=== PATIENT | male | born 1945 | race Caucasian/White ===

== ENCOUNTER 2017-06-08 18:19 | Inpatient (IN) | payer MEDICARE ==
[~2017-06-08] VITALS: Ht 180.3 cm; Wt 84.4 kg
[2017-06-08 19:08] LABS: BASOPHILS # (AUTO) 0.1 (0.0-0.1); BASOPHILS % 0.6 % (0.0-1.0); EOSINOPHILS # (AUTO) 0.1 (0.0-0.4); EOSINOPHILS % 1.7 % (0.0-6.0); HEMATOCRIT 41.4 % (38.2-49.6); HEMOGLOBIN 13.8 g/dL (14.0-18.0); LYMPHOCYTES # (AUTO) 2.1 (1.0-3.2); LYMPHOCYTES % 26.2 % (18.0-39.1); MEAN CORPUSCULAR HEMOGLOBIN 30.8 pg (28-32); MEAN CORPUSCULAR HGB CONC 33.3 g/dL (31-35); MEAN CORPUSCULAR VOLUME 92.4 fL (81-99); MONOCYTES # (AUTO) 0.4 (0.2-0.8); MONOCYTES % 5.2 % (4.4-11.3); NEUTROPHILS # (AUTO) 5.3 (2.1-6.9); NEUTROPHILS % 66.1 % (38.7-80.0); PLATELET COUNT 149 x10e3/uL (140-360); RED BLOOD COUNT 4.48 x10e6/uL (4.3-5.7); RED CELL DISTRIBUTION WIDTH 12.8 % (11.7-14.4)
--- NOTE | 2017-06-08 19:17 | Diagnostic Imaging Report ---
EXAMINATION: CHEST 2 VIEWS INDICATION: Possible heart attack \S\CP/COUGH COMPARISON: None FINDINGS: PA and lateral views TUBES and LINES: None. LUNGS: Lungs are well inflated. Lungs are clear. There is no evidence of pneumonia or pulmonary edema. PLEURA: No pleural effusion or pneumothorax. HEART AND MEDIASTINUM: The cardiomediastinal silhouette is unremarkable. There are atherosclerotic calcifications within the aorta. BONES AND SOFT TISSUES: No acute osseous lesion. Soft tissues are unremarkable. UPPER ABDOMEN: No free air under the diaphragm. IMPRESSION: No acute thoracic abnormality. Signed by: Dr. Avtar Haider M.D. on 06/08/2017 7:13 PM
[2017-06-08 19:18] LABS: INR 1.01; PROTHROMBIN TIME 12.5 seconds (11.9-14.5)
[2017-06-08 19:19] LABS: PARTIAL THROMBOPLASTIN TIME 27.6 seconds (23.8-35.5)
[2017-06-08 19:26] LABS: ALBUMIN 3.5 g/dL (3.5-5.0); ANION GAP 14.4 mmol/L (8-16); CALCIUM 8.5 mg/dL (8.4-10.2); CREATININE, SERUM 1.39 mg/dL (0.72-1.25); POTASSIUM 3.4 mmol/L (3.5-5.1)
[2017-06-08 19:35] LABS: CREATINE KINASE MB 1.6 ng/mL (0-5.0)
--- NOTE | 2017-06-08 20:07 | Diagnostic Imaging Report ---
Exam: Head CT without contrast History: Fainting, Comparison studies: None Technique: Axial images were obtained from the skull base to the vertex. Coronal and sagittal images reconstructed from the axial data. Intravenous contrast: None Findings: Scalp: No abnormalities. Bones: No fractures, blastic or lytic lesions. Brain sulci: Mildly prominent. Ventricles: Mild compensatory dilatation. No hydrocephalus. Extra-axial spaces: No masses, no fluid collection. Parenchyma: No mass, acute hemorrhage or acute cortical vascular insults. A few scattered and mildly confluent hypodensities in the supratentorial white matter are nonspecific but most compatible with chronic small vessel ischemic changes. Small chronic lacunar infarcts in the head of the left caudate nucleus, right frontal gonzales radiata, right superior putamen and in the right thalamus. Sellar/suprasellar region: No abnormalities. Craniocervical junction: Patent foramen magnum. No Chiari one malformation. Incidental findings: Atherosclerotic calcifications in the carotid siphons. IMPRESSION: No acute intracranial abnormalities. Specifically, no mass, acute hemorrhage or acute cortical vascular insults. Chronic findings: 1. Mild generalized volume loss. 2. Moderate chronic microvascular ischemic changes with small chronic lacunar infarcts as described. Signed by: Dr. Theo Lira M.D. on 06/08/2017 8:04 PM
[2017-06-08] MEDS ORDERED: MORPHINE SULFATE 2 MG/ML SYR IV STA (23:59)
[2017-06-08] MEDS ORDERED: ONDANSETRON HCL INJ 2 MG/ML VIAL IV STA (23:59)
[2017-06-09] VITALS (8 sets, daily range): BP systolic 140–165; BP diastolic 70–84
[2017-06-09] MEDS ORDERED: ASPIRIN 81 MG CHEW TAB PO ONE
[2017-06-09] MEDS ORDERED: JANUMET 50-5001 EACH PO (00:21)
[2017-06-09] MEDS ORDERED: CRESTOR10 MG PO (00:21)
[2017-06-09] MEDS ORDERED: BENICAR40 MG PO (00:21)
[2017-06-09] MEDS ORDERED: ASPIR 8181 MG PO (00:21)
[2017-06-09] MEDS ORDERED: AMLODIPINE BESYL5 MG PO (00:21)
[2017-06-09] MEDS ORDERED: LASIX20 MG PO (00:21)
[2017-06-09] MEDS ORDERED: GLIMEPIRIDE2 MG PO (00:21)
[2017-06-09] MEDS ORDERED: MORPHINE SULFATE 2 MG/ML SYR IV PRN (00:45)
[2017-06-09] MEDS ORDERED: ONDANSETRON HCL INJ 2 MG/ML VIAL IV PRN (00:45)
[2017-06-09] MEDS ORDERED: NITROGLYCERIN 0.4 MG SUBL SL PRN (00:45)
[2017-06-09] MEDS ORDERED: FAMOTIDINE 20 MG/2 ML VIAL IV SCH (00:45)
[2017-06-09] MEDS ORDERED: POTASSIUM CHLORIDE 20 MEQ TAB CR PO STA (00:47)
[2017-06-09] MEDS ORDERED: FAMOTIDINE 20 MG/2 ML VIAL IV ONE (00:59)
[2017-06-09] MEDS ORDERED: DEXTROSE 50% SYRINGE 50 ML IV PRN (01:00)
--- OUTSIDE RECORDS SUMMARY | 2017-06-09 01:54 | XMS REPORT ---
Author Author [facility] Address Unknown Phone Unavailable Care Team Providers Care Iridologist Name Role Phone MOIRA EVANGELISTA Unavailable Unavailable Problems This patient has no known problems. Allergies, Adverse Reactions, Alerts This patient has no known allergies or adverse reactions. Medications This patient has no known medications. Results Test Description Test Time Test Comments Text Results Atomic Results Result Comments CT BRAIN WO [place] [address] Patient Name: LORRAINE ALDRIDGE MR #: [id number] : 1945 Age/Sex: 71/M Req #: [id number] Adm Physician: Ordered by: MOIRA EVANGELISTA MD Report #: [id number] Location: ER Room/Bed: Procedure: [id number] 0028 CT/CT BRAIN WO Exam Date: 06/08/17 Exam Time: 1919 REPORT STATUS: Signed Exam: Head CT without contrast History: Fainting, Comparison studies: None Technique: Axial images were obtained from the skull base to the vertex. Coronal and sagittal images reconstructed from the axial data. Intravenous contrast: None Findings: Scalp: No abnormalities. Bones: No fractures, blastic or lytic lesions. Brain sulci: Mildly prominent. Ventricles: Mild compensatory dilatation. No hydrocephalus. Extra-axial spaces: No masses, no fluid collection. Parenchyma: No mass, acute hemorrhage or acute cortical vascular insults. A few scattered and mildly confluent hypodensities in the supratentorial white matter are nonspecific but most compatible with chronic small vessel ischemic changes. Small chronic lacunar infarcts in the head of the left caudate nucleus, right frontal gonzales radiata, right superior putamen and in the right thalamus. Sellar/suprasellar region: No abnormalities. Craniocervical junction: Patent foramen magnum. No Chiari one malformation. Incidental findings: Atherosclerotic calcifications in the carotid siphons. IMPRESSION: No acute intracranial abnormalities. Specifically, no mass, acute hemorrhage or acute cortical vascular insults. Chronic findings: 1. Mild generalized volume loss. 2. Moderate chronic microvascular ischemic changes with small chronic lacunar infarcts as described. Signed by: Dr. Fam Lira M.D. on 06/08/2017 8:04 PM Dictated By: FAM LIRA MD 03 Transcribed By: LUIZA on 06/08/172003 COPY TO: MOIRA EVANGELISTA MD CHEST 2 VIEWS [place] [address] Patient Name: LORRAINE ALDRIDGE MR #: [id number] : 1945 Age/Sex: 71/M Req #: [id number] Adm Physician: Ordered by: MOIRA EVANGELISTA MD Report #: [id number] Location: ER Room/Bed: Procedure: [id number] 0072 DX/CHEST 2 VIEWS Exam Date: 06/08/17 Exam Time : 1843 REPORT STATUS: Signed EXAMINATION: CHEST 2 VIEWS INDICATION: Possible heart attack S CP/COUGH COMPARISON: None FINDINGS: PA and lateral views TUBES and LINES: None. LUNGS: Lungs are well inflated. Lungs are clear. There is no evidence of pneumonia or pulmonary edema. PLEURA: No pleural effusion or pneumothorax. HEART AND MEDIASTINUM: The cardiomediastinal silhouette is unremarkable. There are atherosclerotic calcifications within the aorta. BONES AND SOFT TISSUES: No acute osseous lesion. Soft tissues are unremarkable. UPPER ABDOMEN: No free air under the diaphragm. IMPRESSION: No acute thoracic abnormality. Signed by: Dr. Diane Hoang M.D. on 06/08/2017 7:13 PM Dictated By: DIANE HOANG MD 12 Transcribed By: LUIZA on 06/08/171912 COPY TO: MOIRA EVANGELISTA MD
[2017-06-09 02:30] LABS: BASOPHILS % 0.5 % (0.0-1.0); EOSINOPHILS # (AUTO) 0.1 (0.0-0.4); EOSINOPHILS % 1.8 % (0.0-6.0); HEMATOCRIT 36.3 % (38.2-49.6); HEMOGLOBIN 12.2 g/dL (14.0-18.0); LYMPHOCYTES # (AUTO) 2.1 (1.0-3.2); LYMPHOCYTES % 25.9 % (18.0-39.1); MEAN CORPUSCULAR HGB CONC 33.6 g/dL (31-35); MEAN CORPUSCULAR VOLUME 92.1 fL (81-99); MONOCYTES # (AUTO) 0.6 (0.2-0.8); NEUTROPHILS # (AUTO) 5.1 (2.1-6.9); NEUTROPHILS % 64.4 % (38.7-80.0); PLATELET COUNT 130 x10e3/uL (140-360); RED BLOOD COUNT 3.94 x10e6/uL (4.3-5.7); RED CELL DISTRIBUTION WIDTH 12.7 % (11.7-14.4)
[2017-06-09 02:41] LABS: ANION GAP 12.2 mmol/L (8-16); BLOOD UREA NITROGEN 16 mg/dL (7-26); BUN/CREATININE RATIO 14 (6-25); CALCIUM 8.3 mg/dL (8.4-10.2); CARBON DIOXIDE 24 mmol/L (22-29); CHLORIDE 109 mmol/L (98-107); CREATINE KINASE 78 IU/L (30-200); CREATININE, SERUM 1.17 mg/dL (0.72-1.25); EST GLOMERULAR FILTRATION RATE > 60 ML/MIN (60-); GLUCOSE 96 mg/dL (74-118); POTASSIUM 4.2 mmol/L (3.5-5.1); SODIUM 141 mmol/L (136-145)
[2017-06-09] MEDS ORDERED: CLOPIDOGREL BISULFATE 75 MG TAB PO ONE (03:00)
[2017-06-09] MEDS: ENOXAPARIN INJ 80 MG/0.8 ML SYR SC SCH ×2 (03:10→18:12)
[2017-06-09] MEDS: INSULIN REGULAR, HUMAN 100 UNIT/1 ML 3ML VIAL SQ SCH ×4 (07:30→21:00)
[2017-06-09] MEDS: ASPIRIN 325 MG TAB EC PO SCH (09:00)
[2017-06-09] MEDS: CLOPIDOGREL BISULFATE 75 MG TAB PO SCH (09:00)
[2017-06-09] MEDS: FUROSEMIDE 20 MG TAB PO SCH (09:28)
[2017-06-09] MEDS: FAMOTIDINE 20 MG/2 ML VIAL IV SCH ×2 (09:30→20:55)
[2017-06-09 09:43] LABS: CREATINE KINASE MB 8.1 ng/mL (0-5.0)
--- NOTE | 2017-06-09 09:49 | History and Physical ---
This is a 71-year-old white man who presents to [facility] emergency room with a 1-day history of retrosternal chest tightness radiating to his left shoulder and left arm. Patient also complained of nausea. Denied any diaphoresis. Patient also complained of shortness of breath with this chest discomfort. Patient has a known history of coronary artery disease. In fact, he has undergone coronary stent placement 3 times previously. The last time being at age 52. In the emergency room, the patient's initial troponin I was 0.146, but it has increased to 0.718 at 2 o'clock this morning. Patient is currently chest pain free though. On admission, the patient's BUN and creatinine was 14 and 1.39 respectively. After gentle hydration, this morning it is 16 and 1.17 respectively. Patient's complete blood count is within normal limits. Chest film of the abdomen was unremarkable. EKG done in the emergency room did not reveal any S/T elevation or depression. Patient was admitted for further evaluation and treatment. REVIEW OF SYSTEMS GENERAL: No weight change. No fever or chills. HEENT: Patient does complain of a slight headache, but he states it is due to the fact that needs to smoke a cigarette and drink a caffeinated soda. Denies any visual changes. CARDIOVASCULAR/RESPIRATORY: Chest pain as per HPI. Does complain of slight shortness of breath and chest pain. He has had a hacking cough for the last 3-4 weeks, and was actually diagnosed with influenza A respiratory infection in April 2017. GI: Complained of nausea with the chest pain. No vomiting. No diarrhea. : No BPH or UTI symptoms. NEUROMUSCULAR: Complained of pain in his left shoulder and left arm associated with the chest pain. ALLERGIES: DILTIAZEM. PAST SURGICAL HISTORY 1. Coronary stents placed on 3 separate occasions (age 42, age 48, and age 52). 2. Lumbar spine surgery. 3. Left knee meniscal repair. 4. Right lower extremity angioplasty with stent placement. 5. Bilateral lens placement. FAMILY HISTORY: Multiple family members with coronary artery disease. However, his father who is 97 years old is still alive. SOCIAL HISTORY: This man is and lives with his . He is retired. He is a heavy tobacco smoker of approximately 50-pack year smoker. No alcohol use. Patient is a [place] [employer] . PAST MEDICAL HISTORY 1. Stage 3 chronic kidney disease. 2. Ischemic heart disease (history of myocardial infarction 3 times). 3. Coronary artery disease (history of coronary stent placement on 3 separate occasions). 4. Hyperlipidemia. 5. Hypertensive heart disease. 6. Chronic systolic congestive heart failure. 7. Tobacco abuse. 8. Peripheral arterial disease. 9. Chronic bronchitis. 10. Allergic rhinitis. 11. Type 2 diabetes mellitus. 12. GERD. HOME MEDICATIONS 1. Janumet 50 per 500 mg 1 b.i.d. 2. Glimepiride 4 mg b.i.d. 3. Prevacid 15 mg daily. 4. Aspirin 81 mg a day. 5. Clopidogrel 75 mg a day. 6. Benicar 20 mg a day. 7. Rosuvastatin 20 mg at bedtime. 8. Furosemide 20 mg daily. PHYSICAL EXAMINATION GENERAL: He is alert, awake, and very pleasant and cooperative with exam. VITALS: Height is 5 feet 11 inches, weight 186 pounds. Calculated body mass index 26. Blood pressure is 143/70, pulse 62, respiratory rate 18, oxygen saturation is 96%, temperature 97. INTEGUMENT: Skin is warm and dry. No pallor of conjunctivae. HEENT: Anicteric sclerae. Moist mucous membranes. NECK: Supple. No evidence of jugular venous distention. CARDIOVASCULAR: Distant heart sounds. Regular rate and rhythm. LUNGS: Patient has expiratory wheezing bilaterally with prolonged expiratory phase. No rales or rhonchi appreciated. ABDOMEN: Benign. Normal bowel sounds. Nontender. EXTREMITIES: No edema or deformity. NEUROLOGIC: No gross focal deficits appreciated. DIAGNOSES 1. Unstable angina. 2. Non-Q-wave myocardial infarction. 3. Coronary artery disease (history of coronary stent placement on 3 separate occasions). 4. Chronic obstructive pulmonary disease. 5. Tobacco abuse. 6. Chronic systolic congestive heart failure. 7. Hypertensive heart disease. 8. Stage 3 chronic kidney disease. PLAN 1. Follow renal function. 2. Follow serum troponin I levels. 3. Consult cardiology. 4. Order 2-D echocardiogram. 5. Proceed with beta blockers. 6. Agree with aspirin and Plavix. 7. Agree with 1 dose of enoxaparin that was given early this morning in the emergency room. 8. Highly recommend tobacco cessation. 9. Will order nicotine patch. I informed the patient that he most likely will undergo a left heart catheterization today. I spent 1 hour in the care of the patient. Job#: [id number] JACKSON JUAN
[2017-06-09] MEDS: NICOTINE 7 MG PATCH TOP SCH (10:10)
[2017-06-09] MEDS: AMLODIPINE BESYLATE 5 MG TAB PO SCH (10:10)
[2017-06-09] MEDS ORDERED: MIDAZOLAM HCL 2 MG/2 ML VIAL PRN (13:14)
[2017-06-09] MEDS ORDERED: LIDOCAINE HCL 2% LOCAL 20 ML VIAL PRN (13:14)
[2017-06-09] MEDS ORDERED: FENTANYL CITRATE/PF 100MCG/2 ML INJ PRN (13:14)
[2017-06-09] MEDS ORDERED: FENTANYL CITRATE/PF 100MCG/2 ML INJ IV PRN (13:15)
[2017-06-09] MEDS ORDERED: IOPAMIDOL 300MG/ML 100 ML INFUS..BTL IV PRN (13:15)
[2017-06-09] MEDS ORDERED: SODIUM CHLORIDE 0.9% 1000ML 1,000 ML PRN (13:15)
[2017-06-09] MEDS ORDERED: HEPARIN SOD/SOD CHLORIDE 2,000 ML PRN (13:15)
[2017-06-09] MEDS ORDERED: MIDAZOLAM HCL 2 MG/2 ML VIAL IV PRN (13:15)
[2017-06-09] MEDS ORDERED: GUAIFENESIN/CODEINE 10 ML CUP PO PRN (13:45)
[2017-06-09] MEDS ORDERED: ALBUTEROL SULF 0.083% NEB SOLN 3 ML NEB NEB PRN (13:45)
[2017-06-09] MEDS ORDERED: METHYLPREDNISOLONE SOD SUCC 125 MG/2ML VIAL IV ONE (14:15)
[2017-06-09] MEDS: GLIMEPIRIDE 2 MG TAB PO SCH (14:36)
[2017-06-09] MEDS: GUAIFENESIN/CODEINE 10 ML CUP PO SCH ×2 (14:37→21:01)
[2017-06-09] MEDS: BENZONATATE 100 MG CAP PO SCH ×2 (14:37→21:01)
--- NOTE | 2017-06-09 18:40 | Consultation ---
DATE OF CONSULTATION: June 09, 2017 CARDIOLOGY CONSULTATION REQUESTING PHYSICIAN: Dr. Jack. REASON FOR CONSULTATION: [id number] myocardial infarction. HISTORY OF PRESENT ILLNESS: This is a 71-year-old man with history of coronary artery disease status post myocardial infarction and stent x3 by Dr. Hernandez, hypertension, hyperlipidemia, and diabetes mellitus, who presents with complaints of chest pain. He reports he had been in his usual state of health until recently when he developed influenza that was complicated by pneumonia. He subsequently had bronchitis. He saw his primary care physician, Dr. Jack, yesterday for results. At that time, he only had chest pain caused by his coughing. However, yesterday around 6 p.m. he developed sharp chest pain radiating to the shoulder, jaw and left arm that was associated with shortness of breath and diaphoresis. He described the pain as 27 out of 10 in severity and lasted hours. He, therefore, presented to the ER for further evaluation. REVIEW OF SYSTEMS: Negative except as per HPI. PAST MEDICAL HISTORY 1. Coronary artery disease status post myocardial infarction and stent x3 by Dr. Hernandez. 2. Hypertension. 3. Hyperlipidemia. 4. Diabetes mellitus. PAST SURGICAL HISTORY 1. Meniscus surgery. 2. Back surgery. 3. Cataract surgery. ALLERGIES: DILTIAZEM. MEDICATIONS: Please see medication list. SOCIAL HISTORY: He smoked up to 2 to 3 packs a day for 50 years. He currently smokes less than 1 pack a day. Denies any alcohol or illicit drugs. FAMILY HISTORY: Pertinent for father with myocardial infarction. PHYSICAL EXAMINATION VITAL SIGNS: Temperature 97.2 degrees, pulse 69, respiratory rate 20, blood pressure 140/76, oxygen saturation 94% on room air. GENERAL: A well-developed, well-nourished man in no acute distress. HEENT: Normocephalic, atraumatic. Pupils equal, no scleral icterus. NECK: Supple. No thyromegaly or cervical lymphadenopathy, no carotid bruits. LUNGS: Clear to auscultation bilaterally. No wheezes or crackles. CARDIOVASCULAR: Normal rate, regular rhythm. No murmur. Normal S1 and S2. ABDOMEN: Soft, nontender. EXTREMITIES: No edema. NEURO: Nonfocal exam. LABS: Sodium 141, potassium 4.2, chloride 109, CO2 24, BUN 16, creatinine 1.17. Troponin 1.82. WBC 7.9, hemoglobin 12.2, hematocrit 36.3, platelets 130. EKG: Normal sinus rhythm. TELEMETRY: Normal sinus rhythm. CHEST X-RAY: No acute thoracic abnormality. IMPRESSION 1. [id number] myocardial infarction. 2. Hypertension. 3. Hyperlipidemia. 4. Diabetes mellitus. 5. Tobacco abuse. RECOMMENDATIONS: Given patient's cardiac history, recommend cardiac catheterization for further evaluation of the patient's coronary anatomy. However, patient refused cardiac catheterization today, stating that he was having difficulty with significant cough and did not wish to proceed at this time. Continue Lovenox for anticoagulation. Continue dual antiplatelet therapy. As the patient's blood pressure is acceptable, plan to initiate beta blockade as well as DAGMAR inhibitor. Check lipid panel. We will increase the patient's statin therapy. Symptom control of the patient's coughing. Once he is able to lie flat, plan to proceed with cardiac catheterization at that time. Thank you for this consult. We will continue to follow. Job#: [id number] MOR
[2017-06-09] MEDS: METHYLPREDNISOLONE SOD SUCC 40 MG/ML VIAL IV SCH (20:55)
[2017-06-09] MEDS ORDERED: SIMVASTATIN 20 MG TAB PO SCH (21:00)
[2017-06-09] MEDS ORDERED: ATORVASTATIN 40 MG TAB PO SCH (21:00)
[2017-06-09] MEDS ORDERED: SIMVASTATIN 40 MG TAB PO SCH (21:00)
[2017-06-09] MEDS ORDERED: ASPIRIN 81 MG CHEW TAB PO SCH (21:00)
[2017-06-09] MEDS: METOPROLOL TARTRATE 25 MG TAB PO SCH (21:02)
[2017-06-09 21:58] LABS: CREATINE KINASE MB 5.2 ng/mL (0-5.0)
[2017-06-10] MEDS: METHYLPREDNISOLONE SOD SUCC 40 MG/ML VIAL IV SCH ×2 (02:10→09:25)
[2017-06-10 04:00] VITALS: BP 147/65
[2017-06-10] MEDS ORDERED: CEFTRIAXONE SOD 1 GM VIAL IV SCH (06:15)
[2017-06-10] MEDS ORDERED: AZITHROMYCIN 500MG/NS 250 ML 250 ML IV SCH (06:15)
[2017-06-10 06:41] LABS: BASOPHILS % 0.1 % (0.0-1.0); HEMATOCRIT 40.1 % (38.2-49.6); HEMOGLOBIN 13.5 g/dL (14.0-18.0); LYMPHOCYTES # (AUTO) 0.8 (1.0-3.2); LYMPHOCYTES % 9.1 % (18.0-39.1); MEAN CORPUSCULAR HEMOGLOBIN 30.9 pg (28-32); MEAN CORPUSCULAR HGB CONC 33.7 g/dL (31-35); MEAN CORPUSCULAR VOLUME 91.8 fL (81-99); MONOCYTES # (AUTO) 0.1 (0.2-0.8); MONOCYTES % 1.4 % (4.4-11.3); NEUTROPHILS # (AUTO) 7.8 (2.1-6.9); NEUTROPHILS % 88.9 % (38.7-80.0); PLATELET COUNT 165 x10e3/uL (140-360); RED BLOOD COUNT 4.37 x10e6/uL (4.3-5.7); RED CELL DISTRIBUTION WIDTH 12.4 % (11.7-14.4)
[2017-06-10] MEDS: ENOXAPARIN INJ 80 MG/0.8 ML SYR SC SCH (06:47)
[2017-06-10] MEDS: ALBUTEROL/IPRATROPIUM 3 ML NEB NEB SCH ×2 (07:00→10:36)
[2017-06-10 07:06] LABS: ALBUMIN 3.5 g/dL (3.5-5.0); ALBUMIN/GLOBULIN RATIO 0.9 (0.8-2.0); CALCIUM 9.1 mg/dL (8.4-10.2); CHOL/HDL RATIO 2.7 (3.9-4.7); CREATININE, SERUM 1.31 mg/dL (0.72-1.25)
[2017-06-10] MEDS: INSULIN REGULAR, HUMAN 100 UNIT/1 ML 3ML VIAL SQ SCH (07:30)
[2017-06-10 08:15] VITALS: BP 108/57
--- NOTE | 2017-06-10 08:53 | Diagnostic Imaging Report ---
PROCEDURE: X-RAY CHEST, TWO VIEWS COMPARISON: 06/08/27. INDICATIONS: COPD/CHEST PAIN FINDINGS: LUNGS: No consolidations or edema. PLEURA: No effusions or pneumothorax. HEART \T\ MEDIASTINUM: The heart is within normal size-limits. BONES \T\ SOFT TISSUES: No acute findings. CONCLUSION: No acute thoracic abnormality. Dictated by: Theo Rooney M.D. on 06/10/2017 at 8:53 Electronically approved by: Theo Rooney M.D. on 06/10/2017 at 8:53
[2017-06-10] MEDS ORDERED: AMLODIPINE BESYLATE 5 MG TAB PO SCH (09:00)
[2017-06-10] MEDS ORDERED: FUROSEMIDE 20 MG TAB PO SCH (09:00)
[2017-06-10] MEDS ORDERED: LISINOPRIL 2.5 MG TAB PO SCH (09:00)
[2017-06-10] MEDS: GLIMEPIRIDE 2 MG TAB PO SCH (09:25)
[2017-06-10] MEDS: FAMOTIDINE 20 MG/2 ML VIAL IV SCH (09:25)
[2017-06-10] MEDS: METOPROLOL TARTRATE 25 MG TAB PO SCH (09:25)
[2017-06-10] MEDS: FUROSEMIDE 20 MG TAB PO SCH (09:25)
[2017-06-10] MEDS: ASPIRIN 325 MG TAB EC PO SCH (09:25)
[2017-06-10] MEDS: CLOPIDOGREL BISULFATE 75 MG TAB PO SCH (09:26)
[2017-06-10] MEDS: AMLODIPINE BESYLATE 5 MG TAB PO SCH (09:26)
[2017-06-10] MEDS: NICOTINE 7 MG PATCH TOP SCH (09:27)
[2017-06-10] MEDS: BENZONATATE 100 MG CAP PO SCH (09:27)
[2017-06-10] MEDS: GUAIFENESIN/CODEINE 10 ML CUP PO SCH (09:27)
[2017-06-10] MEDS ORDERED: AUGMENTIN 875-1 EACH PO (11:17)
[2017-06-10] MEDS ORDERED: PLAVIX75 MG PO (11:17)
[2017-06-10] MEDS ORDERED: METOPROLOL TART25 MG PO (11:17)
[2017-06-10] MEDS ORDERED: ISOSORBIDE MONO20 MG PO (11:17)
[2017-06-10] MEDS ORDERED: TESSALON PERLE100 MG PO (11:17)
[2017-06-10] MEDS ORDERED: PREDNISONE20 MG PO (11:17)
[2017-06-10] MEDS ORDERED: robitussin ac PO (11:17)
[2017-06-10 11:35] VITALS: BP 137/64
[2017-06-10] MEDS ORDERED: NITROGLYCERIN0.4 MG SL (11:48)
--- NOTE | 2017-06-10 17:10 | Progress Note ---
DATE: June 10, 2017 CARDIOLOGY PROGRESS NOTE SUBJECTIVE: Patient denies chest pain or shortness of breath. However, he continues to complain of significant coughing. OBJECTIVE VITAL SIGNS: Temperature 98.1 degrees, pulse 62, respiratory rate 20, blood pressure 137/64, and oxygen saturation 97% on room air. GENERAL: Awake and alert, in no acute distress. LUNGS: Clear to auscultation bilaterally. No wheezes or crackles. CARDIOVASCULAR: Normal rate, regular rhythm. No murmur. Normal S1 and S2. ABDOMEN: Soft and nontender. EXTREMITIES: No edema. CARDIAC MEDICATIONS 1. Lisinopril 2.5 mg p.o. daily. 2. Amlodipine 5 mg p.o. daily. 3. Plavix 75 mg p.o. daily. 4. Metoprolol tartrate 25 mg p.o. q.12h. 5. Furosemide 20 mg p.o. daily. 6. Atorvastatin 40 mg p.o. at bedtime. LABS: WBC 8.8, hemoglobin 13.5, hematocrit 40.1, and platelets 165. Sodium 138, potassium 5, chloride 104, Co2 23, BUN 17, and creatinine 1.31. Troponin 0.774. Cholesterol 145, triglycerides 58, LDL 80, and HDL 53. TELEMETRY: Normal sinus rhythm. IMPRESSION 1. Non-ST elevation myocardial infarction. 2. Hypertension. 3. Hyperlipidemia. 4. Diabetes mellitus. 5. Tobacco abuse. RECOMMENDATIONS: Patient refused cardiac catheterization due to his frequent coughing. The risks and benefits of deferring cardiac catheterization were discussed with the patient and he understands that he is at risk for heart attack, heart failure, and . Plan to discharge him on medical therapy including dual antiplatelet therapy, metoprolol, and ARB. He states that he will follow up as an outpatient to schedule cardiac catheterization once his coughing has improved. Thank you for this consult. We will continue to follow. Job#: [id number] SAK
--- NOTE | 2017-06-11 08:29 | Discharge Summary ---
ADMIT DIAGNOSES 1. Unstable angina. 2. Coronary artery disease (history of coronary artery stent placement on 3 separate occasions). 3. Chronic obstructive pulmonary disease exacerbation. 4. Acute bronchitis. 5. Tobacco abuse. 6. Chronic systolic congestive heart failure. 7. Hypertensive heart disease. 8. Stage 3 chronic kidney disease. DISCHARGE DIAGNOSES 1. Unstable angina, resolved. 2. Non-Q-wave myocardial infarction, resolving. 3. Acute bronchitis, resolving. 4. Chronic obstructive pulmonary disease exacerbation, resolving. 5. Coronary artery disease (history of coronary artery stent placement on 3 separate occasions). 6. Tobacco abuse. 7. Chronic diastolic congestive heart failure. 8. Hypertensive heart disease. 9. Stage 3 chronic kidney disease. HOSPITAL COURSE: This is a 71-year-old white man who was initially admitted to [facility] with the diagnosis of angina and COPD exacerbation. During this hospitalization, he was actually diagnosed with a non-Q-wave myocardial infarction. The patient's troponin I did get as high as 1.821. On the day of discharge, it was 0.774. The patient was seen by healthcare or medical, namely Dr. Tevin Smith, who recommended left heart catheterization. The patient, however, could not remain recumbent due to his shortness of breath and intense coughing. The decision was made to defer cardiac catheterization until the patient could tolerate being in a recumbent position without violent coughing. The patient's brief hospitalization was unremarkable. The patient was started on intravenous methylprednisolone, as well as scheduled nebulized bronchodilators for his acute COPD exacerbation. He was also started on intravenous ceftriaxone and azithromycin for his acute bronchitis. Chest x-ray performed during this hospitalization did not reveal any evidence of consolidations, effusions or edema. The patient did undergo an echocardiogram during this hospitalization, which revealed a preserved left ventricular ejection fraction of 60% to 65%, but a diastolic filling pattern indicating impaired relaxation. Thus, the patient was diagnosed with diastolic heart failure. During this hospitalization, the patient was found to have an LDL and cholesterol of 80 and 53 mg/dL respectively. On the day of discharge, the patient's BUN and creatinine were 17 and 1.31 respectively. The patient's condition on discharge was stable. DISCHARGE MEDICATIONS 1. Nicotine patch 7 mg 1 patch daily. 2. Metoprolol tartrate 25 mg b.i.d. 3. Augmentin 875 mg 1 p.o. b.i.d. for 5 days. 4. Clopidogrel 75 mg daily. 5. Aspirin 81 mg daily. 6. Albuterol and Atrovent nebulized treatments 4 times a day scheduled for 5 days and then every 6 hours as needed thereafter. 7. Isosorbide mononitrate 30 mg daily. 8. Glimepiride 4 mg daily. 9. Prevacid 15 mg daily. 10. Losartan 100 mg daily. 11. Rosuvastatin 20 mg at bedtime. 12. Furosemide 20 mg daily. 13. Prednisone 40 mg daily for 5 days. The patient was instructed to stop Janumet until further notice. FOLLOWUP INSTRUCTIONS: The patient will be discharged home and will follow up with Dr. Tevin Smith, the healthcare or medical in a week, and with his primary care physician, namely myself, Dr. Nolberto Liu within the next 2 weeks. Tobacco cessation was highly recommended to the patient. NOLBERTO LIU MD Job#: [id number] JACKSON JUAN
--- OUTSIDE RECORDS SUMMARY | 2017-07-09 15:07 | XMS REPORT | Continuity of Care Document ---
Author Author [facility] Organization [facility] Address [address] [place] [address] Phone Unavailable Care Team Providers Care Microsoft Dynamics Ax Consultant Name Role Phone DANUTA GARNER MD PCP Insurance Providers Guarantor Lorraine Aldridge Address [address] [place] [address] Email Payer [employer] Medicare Complete Policy Number [id number] Subscriber's Name Lorraine Aldridge Relationship 18 Self / Same As Patient Group Number [id number] Group Name RETIRED Effective Date 17 Advance Directives Directive Response Recorded Date/Time Does the patient have an advance directive? Yes 06/09/17 3:45am If yes, is advance directive on file with [facility]? No 06/09/17 3:45am If not on file with [facility] will patient provide a copy? Yes 06/09/17 3:45am Do you have a Directive to Physician? No 06/08/17 7:46pm Do you have a Medical Power of Metal Weather Stripper? No 06/08/17 7:46pm Do you have an out of hospital Do Not Resuscitate Order? No 06/08/17 7:46pm Do you have any special needs we should be aware of? No 06/08/17 7:46pm Do you have a support person here with you today? Yes 06/08/17 7:46pm Did patient receive Notice of Privacy Practices? Yes 06/08/17 7:46pm Did patient receive patient rights and responsibilities? Yes 06/08/17 7:46pm Problems Medical Problem Onset Date Status Chest pain Unknown Non-STEMI (non-ST elevated myocardial infarction) Unknown Medications Current Home Medications Medication Dose Units Route Directions Days Qty Instructions Start Date Amlodipine Besylate 5 Mg Tablet 5 Mg Oral Daily 30 Tab Amoxicillin/Potassium Clav (Augmentin 875-125 Tablet) 1 Each Tablet 875 Mg Oral Twice A Day 7 Days 14 Tab Aspirin (Aspir 81) 81 Mg Tablet.dr 1 Tab Oral Bedtime Benzonatate (Tessalon Perle) 100 Mg Capsule 1 Tab Oral Three Times A Day 60 Clopidogrel Bisulfate (Plavix) 75 Mg Tablet 75 Mg Oral Daily 30 Tab Furosemide (Lasix) 20 Mg Tablet 20 Mg Oral Daily 30 Tab Glimepiride 2 Mg Tablet 4 Mg Oral Twice A Day Isosorbide Mononitrate 20 Mg Tablet 30 Mg Oral Daily 30 Tab Metoprolol Tartrate 25 Mg Tablet 25 Mg Oral Twice A Day 60 Tab Nitroglycerin 0.4 Mg Tab.subl 0.4 Mg Sublingual Every 5 Minutes as needed for Chest Pain Olmesartan Medoxomil (Benicar) 40 Mg Tablet 40 Mg Oral Daily Prednisone 20 Mg Tab 40 Mg Oral Daily 5 Days Robitussin Ac 2 Tsp Oral Every 6 Hours for Cough 8 Ounce Rosuvastatin Calcium (Crestor) 10 Mg Tab 10 Mg Oral Bedtime THERAPEUTICALLY SUBSTITUTED WITH SIMVASTATIN 40MG Past Home Medications Medication Directions Ordered Status Sitagliptin Phos/Metformin Hcl (Janumet 50-500 Mg Tablet) 1 Each Tablet, 1 Tab Oral Twice A Day Discontinued Social History Social History Problem Response Recorded Date/Time Onset Date Status Hx Psychiatric Problems No 06/09/2017 3:45am Not Applicable Not Applicable Hx Eating Disorder No 06/09/2017 3:45am Not Applicable Not Applicable Hx Substance Use Disorder No 06/09/2017 3:45am Not Applicable Not Applicable Hx Depression No 06/09/2017 3:45am Not Applicable Not Applicable Hx Alcohol Use No 06/09/2017 3:45am Not Applicable Not Applicable Hx Substance Use Treatment No 06/09/2017 3:45am Not Applicable Not Applicable Hx Physical Abuse No 06/09/2017 3:45am Not Applicable Not Applicable Smoking Status Start Date Stop Date Current every day smoker Hospital Discharge Instructions No hospital discharge instruction information available. Plan of Care Discharge Date 06/10/17 1:00pm Disposition HOME, SELF-CARE Instructions/Education Provided Chest Pain - Chest Wall Prescriptions See Medication Section Referrals DINESH PEREA MD (Cardiology) Order Date: 06/16/2017 Entered Date: 06/10/2017 11:59am Address: [address] [place] [address] JUWAN LIU MD (Internal Medicine) Order Date: 06/23/2017 Entered Date: 06/10/2017 11:59am Address: [address] [place] [address] [address] [place] [address] Additional Instructions/Education DIABETIC DIET ACTIVITY TOLERATED BREATHING TREATMENTS EVERY 4 HOURS TAKE MEDICATIONS PRESCRIBED RETURN TO ER FOR ANY CHEST PAINS Functional Status Query Response Date Recorded Assistive Devices None June 09, 2017 4:12am Ambulation Ability Independent June 09, 2017 4:12am Toileting Ability Independent June 09, 2017 6:37pm Allergies, Adverse Reactions, Alerts Allergen Type Severity Reaction Status Last Updated Diltiazem Allergy Severe hives Active 06/09/17 Immunizations No immunization information available. Vital Signs Acute Vital Signs Vital Response Date/Time Temperature (Fahrenheit) 98.1 degrees F (97.6 - 99.5) 06/10/2017 11:35am Pulse Pulse Rate (adult) 62 bpm (60 - 90) 06/10/2017 11:35am Respiratory Rate 20 bpm (12 - 24) 06/10/2017 11:35am Blood Pressure 137/64 mm Hg 06/10/2017 11:35am Height 5 ft 11 in 06/09/2017 3:28am Weight 186 lb 06/09/2017 3:28am Body Mass Index 25.9 kg/m^2 06/09/2017 3:45am Results Laboratory Results Test Name Result Units Flags Reference Collection Date/Time Result Date/ Time Comments White Blood Count 8.81 x10e3/uL 4.8-10.8 06/10/2017 6:1506/10/2017 6 :43am Red Blood Count 4.37 x10e6/uL 4.3-5.7 06/10/2017 6:1506/10/2017 6: 43am Hemoglobin 13.5 g/dL L 14.0-18.0 06/10/2017 6:1506/10/2017 6:43am Hematocrit 40.1 % 38.2-49.6 06/10/2017 6:1506/10/2017 6:43am Mean Corpuscular Volume 91.8 fL 81-99 06/10/2017 6:1506/10/2017 6: 43am Mean Corpuscular Hemoglobin 30.9 pg 28-32 06/10/2017 6:1506/10/2017 6:43am Mean Corpuscular Hemoglobin Concent 33.7 g/dL 31-35 06/10/2017 6:1506/10/2017 6:43am Red Cell Distribution Width 12.4 % 11.7-14.4 06/10/2017 6:152017 6:43am Platelet Count 165 x10e3/uL 140-360 06/10/2017 6:1506/10/2017 6: 43am Neutrophils (%) (Auto) 88.9 % H 38.7-80.0 06/10/2017 6:1506/10/2017 6 :43am Lymphocytes (%) (Auto) 9.1 % L 18.0-39.1 06/10/2017 6:06/10/2017 6: 43am Monocytes (%) (Auto) 1.4 % L 4.4-11.3 06/10/2017 6:1506/10/2017 6: 43am Eosinophils (%) (Auto) 0.0 % 0.0-6.0 06/10/2017 6:1506/10/2017 6: 43am Basophils (%) (Auto) 0.1 % 0.0-1.0 06/10/2017 6:1506/10/2017 6:43am IM GRANULOCYTES % 0.5 % 0.0-1.0 06/10/2017 6:1506/10/2017 6:43am Neutrophils # (Auto) 7.8 H 2.1-6.9 06/10/2017 6:15am 06/10/2017 6: 43am Lymphocytes # (Auto) 0.8 L 1.0-3.2 06/10/2017 6:15am 06/10/2017 6: 43am Monocytes # (Auto) 0.1 L 0.2-0.8 06/10/2017 6:15am 06/10/2017 6:43am Eosinophils # (Auto) 0.0 0.0-0.4 06/10/2017 6:15am 06/10/2017 6:43am Basophils # (Auto) 0.0 0.0-0.1 06/10/2017 6:1506/10/2017 6:43am Absolute Immature Granulocyte (auto 0.04 x10e3/uL 0-0.1 06/10/2017 6: 15am 06/10/2017 6:43am Prothrombin Time 12.5 seconds 11.9-14.5 06/08/2017 6:30pm 06/08/2017 7: 19pm Prothromb Time International Ratio 1.01 06/08/2017 6:30pm 2017 7:19pm Oral Anticoagulant Therapy INR Values: 1. Low Intensity Therapy 1.5 - 2.0 2. Moderate Intensity Therapy 2.0 - 3.0 3. High Intensity Therapy(1) 2.5 - 3.5 4. High Intensity Therapy(2) 3.0 - 4.0 5. Panic Value INR > 5.0 Activated Partial Thromboplast Time 27.6 seconds 23.8-35.5 06/08/2017 6: 30pm 06/08/2017 7:19pm Sodium Level 138 mmol/L 136-145 06/10/2017 6:1506/10/2017 7:13am Potassium Level 5.0 mmol/L 3.5-5.1 06/10/2017 6:1506/10/2017 7:13am Chloride Level 104 mmol/L 98-107 06/10/2017 6:15am 06/10/2017 7:13am Carbon Dioxide Level 23 mmol/L 22-06/10/2017 6:15am 06/10/2017 7: 13am Anion Gap 16.0 mmol/L 8-16 06/10/2017 6:1506/10/2017 7:13am Blood Urea Nitrogen 17 mg/dL 7-26 06/10/2017 6:1506/10/2017 7:13am Creatinine 1.31 mg/dL H 0.72-1.25 06/10/2017 6:1506/10/2017 7:13am BUN/Creatinine Ratio 13 6-25 06/10/2017 6:1506/10/2017 7:13am Estimat Glomerular Filtration Rate 54 ML/MIN L 60- 06/10/2017 6:15 7:13am Ranges were taken from the National Kidney Disease Education Program and the National Kidney Foundation literature. Reference ranges: 60 or greater: Normal 16-59 (for 3 consecutive months): Chronic kidney disease 15 or less: Kidney failure Glucose Level 225 mg/dL H 74-118 06/10/2017 6:1506/10/2017 7:13am Calcium Level 9.1 mg/dL 8.4-10.2 06/10/2017 6:1506/10/2017 7:13am Bedside Glucose 254 mg/dL H 70-120 06/10/2017 10:59am 06/10/2017 11: 41am Meter ID: [id number] Total Bilirubin 0.7 mg/dL 0.2-1.2 06/10/2017 6:1506/10/2017 7:13am Aspartate Amino Transf (AST/SGOT) 22 IU/L 5-34 06/10/2017 6:152017 7:13am Alanine Aminotransferase (ALT/SGPT) 20 IU/L 0-55 06/10/2017 6:15 7:13am Total Protein 7.4 g/dL 6.5-8.1 06/10/2017 6:1506/10/2017 7:13am Albumin 3.5 g/dL 3.5-5.0 06/10/2017 6:1506/10/2017 7:13am Globulin 3.9 g/dL H 2.3-3.5 06/10/2017 6:1506/10/2017 7:13am Albumin/Globulin Ratio 0.9 0.8-2.0 06/10/2017 6:1506/10/2017 7: 13am Alkaline Phosphatase 89 IU/L 40-150 06/10/2017 6:15am 06/10/2017 7: 13am Triglycerides Level 58 MG/DL 0-149 06/10/2017 6:15am 06/10/2017 7:13am Cholesterol Level 145 MD/DL 0-199 06/10/2017 6:15am 06/10/2017 7:13am Less than 200 mg/dL Low Risk 201 - 239 mg/dL Borderline Risk 240 mg/dl and greater High Risk LDL Cholesterol 80 MG/DL 60-130 06/10/2017 6:15am 06/10/2017 7:13am HDL Cholesterol 53 MG/DL 40-60 06/10/2017 6:15am 06/10/2017 7:13am Cholesterol/HDL Ratio 2.7 L 3.9-4.7 06/10/2017 6:15am 06/10/2017 7: 13am Creatine Kinase 94 IU/L 30-200 06/09/2017 8:30pm 06/09/2017 9:47pm Creatine Kinase MB 5.20 ng/mL H 0-5.0 06/09/2017 8:30pm 06/09/2017 10: 01pm Troponin I 0.774 ng/mL H 0-0.300 06/10/2017 6:15am 06/10/2017 7:14am Microbiology Results Procedure Source Organism/Result Collection Date/Time Result Date/Time Result Status Blood Culture Blood NO GROWTH AFTER 24 HOURS 06/08/2017 6:30pm 06/09/2017 7:05pm Preliminary Procedures Procedure Status Date Provider(s) X-ray of chest, two views Active 06/08/17 MOIRA EVANGELISTA MD Computed tomography of brain without radiopaque contrast Active 06/08/17 MOIRA EVANGELISTA MD X-ray of chest, two views Active 06/10/17 JUWAN LIU MD Encounters Encounter Location Arrival/Admit Date Discharge/Depart Date Attending Provider Discharged Inpatient (obs) [facility] 06/09/17 1:51am 1:00pm JUWAN LIU MD
--- OUTSIDE RECORDS SUMMARY | 2017-07-09 15:07 | XMS REPORT | Clinical Summary ---
Author Author [facility] Organization [facility] Address Unknown Phone Unavailable Care Team Providers Care Judge'S Clerk Name Role Phone Fabian Jack MD PCP Allergies Active Allergy Reactions Severity Noted Date Comments Diltiazem Hcl Hives 06/18/2017 Oseltamivir Diarrhea 07/01/2017 BP lowered Current Medications Prescription Sig. Disp. Refills Start End Date Status Date amLODIPine (NORVASC) 5 mg Take 5 mg by mouth daily. 04/02/20 Active tablet 17 clopidogrel (PLAVIX) 75 Take 75 mg by mouth 06/10/19 Active mg tablet daily. 18 furosemide (LASIX) 20 mg Take 20 mg by mouth 06/29/19 Active tablet daily. 18 glimepiride (AMARYL) 4 MG Take 2 mg by mouth 2 05/07/19 Active tablet (two) times a day. 18 ipratropium-albuterol 3 mL as needed. 06/08/19 Active (DUO-NEB) 0.5-2.5 mg/mL 18 nebulizer losartan (COZAAR) 100 MG Take 100 mg by mouth 06/08/19 Active tablet daily. 18 metoprolol tartrate 25 mg 2 (two) times a 06/10/19 Active (LOPRESSOR) 25 mg tablet day. 18 rosuvastatin (CRESTOR) 10 Take 10 mg by mouth 05/31/19 Active MG tablet nightly. 18 aspirin (ECOTRIN) 81 MG Take 81 mg by mouth Active enteric coated tablet daily. benzonatate (TESSALON) Take 100 mg by mouth 3 Active 100 MG capsule (three) times a day. codeine-guaifenesin Take 5 mL by mouth 4 Active (guaiFENesin AC) 10-100 (four) times a day as mg/5 mL liquid needed for cough. ACCU-CHEK VALERIY PLUS TEST 2 (two) times a day. 06/14/19 07/03/19 Discontin STRP strip test strips 18 18 ued LANSOPRAZOLE ORAL Take by mouth daily. 07/03/19 Discontin 18 ued Active Problems Problem Noted Date Coronary artery disease involving [place] coronary artery of [place] heart 08/2017 without angina pectoris Overview: Added automatically from request for surgery [id number] Stable angina pectoris 06/21/2017 Overview: Added automatically from request for surgery [id number] Encounters Date Type Specialty Care Team Description 07/09/2017 Telephone Cardiology Mae Dunlap RN medical records 07/08/2017 Telephone Cardiovascular Adalberto Falcon MD 07/07/2017 Documentation Cardiovascular Geraldine Sanchez RN PCP Referral Recieved (PCP Referral Recieved) 07/06/2017 Telephone Cardiovascular Geraldine Sanchez RN 07/05/2017 Documentation Cardiovascular Geraldine Sanchez RN New Patient Referral for Dr. Falcon from Dr. Anderson (New Patient Referral for Dr. Falcon from Dr. Anderson) 07/05/2017 Orders Only Cardiovascular Geraldine Sanchez RN Coronary artery disease involving [place] coronary artery of [place] heart, angina presence unspecified (Primary Dx) 07/02/2017 Hospital Procedural Cardiology Jc Anderson MD Stable angina pectoris; Encounter Coronary artery disease involving [place] coronary artery of [place] heart without angina pectoris 07/02/2017 Procedure Pass Procedural Cardiology 07/02/2017 Surgery Procedural Cardiology Jc Anderson MD Cv selective coronary angiography [21368 (CPT )] 07/01/2017 Office Visit Cardiology Jc Anderson MD Essential hypertension (Primary Dx) 06/22/2017 Telephone Cardiology Mae Dunlap RN medical records 06/21/2017 Orders Only Cardiology Mae Dunlap RN Stable angina pectoris (Primary Dx); Coronary artery disease involving [place] coronary artery of [place] heart without angina pectoris 06/17/2017 Telephone Cardiology Mae Dunlap RN appt/Justin after 07/08/2016 Family History Medical History Relation Name Comments Heart attack Father Stomach cancer Father Relation Name Status Comments Father Alive Mother Social History Tobacco Use Types Packs/Day Years Used Date Current Every Day Smoker Cigarettes 1 Smokeless Tobacco: Never Used Alcohol Use Drinks/Week oz/Week Comments No Sex Assigned at Date Recorded Not on file Last Filed Vital Signs Vital Sign Reading Time Taken Blood Pressure 140/73 07/02/2017 11:15 AM CDT Pulse 55 07/02/2017 11:30 AM CDT Temperature 36.5 C (97.7 F) 07/02/2017 9:15 AM CDT Respiratory Rate 20 07/02/2017 11:30 AM CDT Oxygen Saturation 98% 07/02/2017 11:30 AM CDT Inhaled Oxygen - - Concentration Weight 86.2 kg (190 lb) 07/02/2017 7:00 AM CDT Height 177.8 cm (5' 10") 07/02/2017 7:00 AM CDT Body Mass Index 27.26 07/02/2017 7:00 AM CDT Plan of Treatment Date Type Specialty Care Team Description 07/13/2017 Office Visit Cardiology Jc Anderson MD [address] [place] [address] [phone] 07/26/2017 Appointment Procedural Cardiology Adalberto Falcon MD [address] [facility] [address] [place] [address] [phone] 07/26/2017 Office Visit Cardiovascular Adalberto Falcon MD [address] [facility] [address] [place] [address] [phone] Health Maintenance Due Date Last Done Comments COLONOSCOPY 07/21/1995 ZOSTER VACCINE 2005 PNEUMOCOCCAL 2010 POLYSACCHARIDE VACCINE AGE 65 AND OVER PNEUMOCOCCAL-13 2010 INFLUENZA VACCINE 11/17/2016 Procedures Procedure Name Priority Date/Time Associated Diagnosis Comments CV SELECTIVE CORONARY Routine 07/02/2017 Coronary artery disease Results for this ANGIOGRAPHY 9:04 AM CDT involving [place] coronary procedure are in the artery of [place] heart results section. without angina pectoris Stable angina pectoris after 07/08/2016 Results * Lipid panel (07/02/2017 9:18 AM) Component Value Ref Range Cholesterol 156 <200 mg/dL Triglycerides 97 <150 mg/dL HDL cholesterol 64 >40 mg/dL LDL cholesterol 81Comment: Result obtained by direct LDL <100 mg/dL measurement Lipid panel SeeBelow interpretation Comment: Total Cholesterol (mg/dL) <200 Desirable 200-239 Borderline-high >=240 High Triglycerides (mg/dL) <150 Normal 150-199 Borderline-high 200-499 High >=500 Very high HDL Cholesterol (mg/dL) <40 Low (male) <40 Low (female) LDL Cholesterol (mg/dL) <100 Optimal 100-129 Near or above optimal 130-159 Borderline-high 160-189 High >=190 Very high Risk Catergories that modify LDL goals. Risk Catergories LDL goal (mg/dL) CHD and CHD risk equivalent <100 (10-year risk >20%) Multiple (2+) risk factors <130 (10-year risk=<20%) 0-1 risk factors <160 (<10-year risk) Defining levels of lipids in metabolic syndrome Triglycerides >=150 mg/dL HDL Cholesterol Men <40 mg/dL Women <40 mg/dL Non-HDL cholesterol is a second target for therapy in persons with high triglycerides (>=200 mg/dL) Specimen Performing Laboratory Plasma specimen [facility] DEPARTMENT OF PATHOLOGY AND GENOMIC MEDICINE [address] [place] [address] * Cv cardiac cath lab radiology technologist procedure (07/02/2017 9:04 AM) Specimen Performing Laboratory [facility] [address] [place] [address] Narrative Moderate sedation was administered with physician supervisionof patient consciousness, respiration, Oxygen saturation and CO2 monitoring, beginning [id number] ( time)for a total period of 20 minutes. I was physically present for the critical portions of all procedures performed during this episode of careSevere multivessel disease with severe mid LAD stenosis, diffuse proximal RCA stenosis, and occluded LCX stents with distal filling of the OMs via R-L and L-L collaterals. Will proceed with PFTs and surgical evaluation. * ECG 12 lead (07/02/2017 7:13 AM) Only the most recent of 2 results within the time period is included. Component Value Ref Range Ventricular rate 64 Atrial rate 64 SD interval 168 QRSD interval 86 QT interval 404 QTC interval 416 P axis 1 -23 QRS axis 1 -29 T wave axis 2 EKG impression Normal sinus rhythm-Nonspecific T wave abnormality-Abnormal ECG-In automated comparison with ECG of 01-JUL-2017 12:43,-Nonspecific T wave abnormality now evident in Inferior leads-Nonspecific T wave abnormality now evident in Lateral leads- Specimen Performing Laboratory [facility] [address] [place] [phone] * Estimated GFR (07/02/2017 7:00 AM) Component Value Ref Range GFR Non Af Amer 50 (A) mL/min/1.73 m2 GFR Af Amer 60 mL/min/1.73 m2 Comment: Chronic kidney disease: <60 mL/min/1.73m2 Kidney failure: <15 mL/min/1.73m2 The estimated GFR is calculated from the IDMS-traceable Modification of Diet in Renal Disease Equation. The accuracy of the calculation is poor when the creatinine is normal. Calculated values >90 mL/min/1.73m2 are not reported. This equation has not been validated in children (<18 years), women, the elderly (>70 years), or ethnic groups other than Caucasians and Americans. Specimen Performing Laboratory Plasma specimen [facility] DEPARTMENT OF PATHOLOGY AND GENOMIC MEDICINE [address] [place] [id number] * Partial thromboplastin time, activated (07/02/2017 7:00 AM) Component Value Ref Range PTT 27.8 23.0 - 36.0 sec Comment: PTT therapeutic range for unfractionated heparin is 61.0-112.0 seconds which corresponds to Anti-Xa 0.3-0.7 U/ml. Specimen Performing Laboratory Blood [facility] DEPARTMENT OF PATHOLOGY AND GENOMIC MEDICINE [address] [place] [id number] * Prothrombin time with INR (07/02/2017 7:00 AM) Component Value Ref Range Prothrombin time 13.5 12.0 - 15.0 sec INR 1.0 Comment: The International Normalized Ratio (INR) is a therapeutic monitoring tool for patients who are stable on oral anticoagulant therapy. An INR of 2.0-3.0 is suggested for deep vein thrombosis/pulmonary embolism. Specimen Performing Laboratory Blood [facility] DEPARTMENT OF PATHOLOGY AND GENOMIC MEDICINE [address] [place] [id number] * CBC with platelet and differential (07/02/2017 7:00 AM) Component Value Ref Range WBC 7.56 4.50 - 11.00 k/uL RBC 4.50 4.40 - 6.00 m/uL HGB 13.9 (L) 14.0 - 18.0 g/dL HCT 42.1 41.0 - 51.0 % MCV 93.6 82.0 - 100.0 fL MCH 30.9 27.0 - 34.0 pg MCHC 33.0 31.0 - 37.0 g/dL RDW - SD 44.4 37.0 - 55.0 fL MPV 10.4 8.8 - 13.2 fL Platelet count 154 150 - 400 k/uL Nucleated RBC 0.00 /100 WBC Neutrophils 70.6 (H) 39.0 - 69.0 % Lymphocytes 21.4 (L) 25.0 - 45.0 % Monocytes 5.3 0.0 - 10.0 % Eosinophils 1.6 0.0 - 5.0 % Basophils 0.7 0.0 - 1.0 % Immature granulocytes 0.4Comment: "Immature granulocytes" 0.0 - 1.0 % (promyelocytes, myelocytes, metamyelocytes) Specimen Performing Laboratory Blood [facility] DEPARTMENT OF PATHOLOGY AND GENOMIC MEDICINE [address] [place] [id number] * Basic metabolic panel (07/02/2017 7:00 AM) Component Value Ref Range Sodium 140 135 - 148 mEq/L Potassium 4.0 3.5 - 5.0 mEq/L Chloride 101 98 - 112 mEq/L CO2 26 24 - 31 mEq/L Anion gap 13 7 - 15 mEq/L Comment: Starting from July , anion gap calculation no longer incorporates potassium. Please note the change. BUN 15 8 - 23 mg/dL Creatinine 1.4 (H) 0.7 - 1.2 mg/dL Glucose 229 (H) 65 - 99 mg/dL Calcium 8.8 8.8 - 10.2 mg/dL Specimen Performing Laboratory Plasma specimen [facility] DEPARTMENT OF PATHOLOGY AND GENOMIC MEDICINE [address] [place] [phone] after 07/08/2016 Insurance Payer Benefit Subscriber ID Type Phone Address Plan / Group [facility] MEDICARE AARP xxxxxxxxx O MEDICARE COMPLETE [id number]
== END 2017-06-10 13:00 | disposition home or self-care (01) | DRG 281 ==
LOC: ER 18:19 → EDBEDREQ 06-09 00:50 → ERHOLD 06-09 01:51 → UNDOADMOB 06-09 01:51 → MED/SURG 06-09 01:51 → ERHOLD 06-09 02:07 → MED/SURG 06-09 02:07 → UNDODISOB 06-10 13:00
PROVIDERS: ADMIT Internal Medicine; ATTEND Internal Medicine
DX: I21.4 Non-ST elevation (NSTEMI) myocardial infarction (principal); I13.0 Hypertensive heart and chronic kidney disease with heart failure and stage 1 through stage 4 chronic kidney disease, or unspecified chronic kidney disease; I50.32 Chronic diastolic (congestive) heart failure; E11.9 Type 2 diabetes mellitus without complications; J44.0 Chronic obstructive pulmonary disease with (acute) lower respiratory infection; J44.1 Chronic obstructive pulmonary disease with (acute) exacerbation; I25.110 Atherosclerotic heart disease of native coronary artery with unstable angina pectoris; R07.2 Precordial pain; Z95.5 Presence of coronary angioplasty implant and graft; N18.3 Chronic kidney disease, stage 3 (moderate); Z72.0 Tobacco use; E78.5 Hyperlipidemia, unspecified; K21.9 Gastro-esophageal reflux disease without esophagitis; R05 Cough; J20.9 Acute bronchitis, unspecified; E66.9 Obesity, unspecified; Z68.25 Body mass index [BMI] 25.0-25.9, adult
CPT/HCPCS: 36415; 70450; 71046; 80048; 80053; 80061; 82550; 82553; 82948; 84484; 85025; 85610; 85730; 87040; 93005; 93306; 94640; 96374; 99284; G0378; J0456; J0696; J1650; J2001; J2250; J2270; J2405; J2920; J2930; J7030; Q9967

== ENCOUNTER 2022-10-09 07:31 | Emergency (ER) | payer MEDICARE ==
[~2022-10-09] VITALS: Ht 177.8 cm; Wt 79.8 kg
[~2022-10-09 07:31] MED LIST: AMLODIPINE BESYL5 MG PO; ASPIR 8181 MG PO; AUGMENTIN 875-1 EACH PO; BENICAR40 MG PO; CRESTOR10 MG PO; GLIMEPIRIDE2 MG PO; ISOSORBIDE MONO20 MG PO; JANUMET 50-5001 EACH PO; LASIX20 MG PO; METOPROLOL TART25 MG PO; NITROGLYCERIN0.4 MG SL; PLAVIX75 MG PO; PREDNISONE20 MG PO; TESSALON PERLE100 MG PO; robitussin ac PO
[2022-10-09] MEDS ORDERED: LIDOCAINE JELLY 2% 10ML URO-JET ONE (07:55)
[2022-10-09 08:47] LABS: CLARITY,URINE CLEAR (CLEAR); COLOR,URINE YELLOW (YELLOW)
[2022-10-09 08:48] LABS: KETONES,URINE NEGATIVE (NEGATIVE); LEUKOCYTE ESTERASE ,URINE NEGATIVE (NEGATIVE); NITRITE,URINE NEGATIVE (NEGATIVE); PROTEIN,URINE DIPSTICK 1+ (NEGATIVE); URINE UROBILINOGEN 0.2 mg/dL (0.2 - 1)
[2022-10-09 08:54] LABS: BACTERIA,URINE FEW /HPF; EPITHELIAL CELLS,URINE FEW /LPF
[2022-10-09 09:38] VITALS: BP 115/67; PULSE 84; RESP 17; O2SAT 99
== END 2022-10-09 09:20 | disposition home or self-care (01) ==
LOC: ER 07:42
DX: R33.9 Retention of urine, unspecified (principal); I10 Essential (primary) hypertension; E11.9 Type 2 diabetes mellitus without complications; K21.9 Gastro-esophageal reflux disease without esophagitis; I25.2 Old myocardial infarction; Z95.1 Presence of aortocoronary bypass graft
CPT/HCPCS: 51700; 81001; 87086; 99283